=== PATIENT | female | born 1980 | race Caucasian/White ===

== ENCOUNTER 2018-08-17 04:43 | Emergency (ER) | payer SELFPAY ==
[~2018-08-17] VITALS: Ht 152.4 cm; Wt 62.0 kg
[2018-08-17] MEDS ORDERED: OXYCODONE HCL/ACETAMINOPHEN 5/325MG TABLET PO ONE (06:45)
[2018-08-17 07:06] VITALS: BP 131/84
== END 2018-08-17 07:33 | disposition home or self-care (01) ==
LOC: ER 06:16
DX: K08.89 Other specified disorders of teeth and supporting structures (principal); Z88.1 Allergy status to other antibiotic agents
CPT/HCPCS: 99283